=== PATIENT | female | born 1945 | race Caucasian/White ===

== ENCOUNTER → 2024-05-08 | Outpatient (CLI) | payer MEDICARE, SELFPAY ==
[2024-05-08 10:06] LABS: Collection Type, Urine Clean Catch
[2024-05-08 10:25] LABS: Basophils % (Auto) 1 % (0-2.5); Eosinophils # (Auto) 0.1 Thou/mm3 (0.0-0.5); Eosinophils % (Auto) 2 % (0-10); Hematocrit 41.5 % (36.0-46.0); Hemoglobin 14.6 g/dL (12.0-16.0); Immature Granulocytes % (Auto) 0 % (0-0); Lymphocytes # (Auto) 1.2 Thou/mm3 (1.0-4.8); Lymphocytes % (Auto) 32 % (10-50); Mean Corpuscular HGB Conc 35.2 g/dl (31.0-37.0); Mean Corpuscular Hemoglobin 30.4 pg (25.0-35.0); Mean Corpuscular Volume 86 fL (80-100); Monocytes # (Auto) 0.4 Thou/mm3 (0.0-0.8); Monocytes % (Auto) 10 % (0-12); Neutrophils # (Auto) 2.2 Thou/mm3 (1.8-7.7); Neutrophils % (Auto) 56 % (37-80); Nucleated Red Blood Cell % 0 /100 WBC (0); Platelet Count 209 Thou/mm3 (140-440); RDW Standard Deviation 42.1 fL (36.4-46.3); Red Blood Count 4.81 Miln/mm3 (4.00-5.20); White Blood Count 3.9 Thou/mm3 (3.6-11.0)
[2024-05-08 10:40] LABS: Bacteria,Urine Rare; Bilirubin,Urine Negative (Negative); Blood,Urine Trace (Negative); Clarity,Urine Clear (Clear/Hazy); Color,Urine Yellow (Lt Yel-Yel); Culture Indicated,Urine Not Indicated; Glucose, Urine Negative (Negative); Granular Casts,Urine < 1 /hpf (0-1); Hyaline Casts,Urine 1 /hpf (0-1); Ketones,Urine Negative (Negative); Leukocyte Esterase,Urine Negative (Negative); Nitrite,Urine Negative (Negative); PH,Urine 6.5 (5.0-7.0); Protein,Urine Trace (Neg - Trace); RBC,Urine 9 /hpf (0-3); Specific Gravity,Urine 1.019 (1.001-1.035); Squamous Epithelial Cell,Urine 2 /hpf (0-5); WBC,Urine 1 /hpf (0-5)
[2024-05-08 11:02] LABS: Alanine Aminotransferase 18 U/L (10-49); Albumin, Serum 4.6 gm/dL (3.4-4.8); Albumin/Globulin Ratio 2.3 (1.2-2.2); Alkaline Phosphatase 73 U/L (46-116); Anion Gap 9 (7-16); Aspartate Amino Transferase 20 U/L (0-34); BUN/Creatinine Ratio 11 Ratio (12-20); Blood Urea Nitrogen 11 mg/dL (9-23); Calcium 9.7 mg/dL (8.3-10.6); Calcium (Corrected) 9.7 mg/dL (8.5-10.1); Carbon Dioxide 26.4 mMol/L (20.0-31.0); Chloride 101 mMol/L (98-107); Cholesterol 191 mg/dL (132-200); Glucose 92 mg/dL (74-106); HDL Cholesterol 64 mg/dL (40-60); LDL Cholesterol,Calculated 107 mg/dL (0-130); Osmolality,Calculated 271 (275-295); Potassium 4.4 mMol/L (3.4-5.1); Sodium 136 mMol/L (136-145); Thyroid Stimulating Hormone 0.87 uIU/mL (0.55-4.78); Total Protein 6.6 gm/dL (5.7-8.2); Triglycerides 101 mg/dL (30-150); eGFR 58 See Note
== END | disposition home or self-care (01) ==
LOC: COPL 09:25
PROVIDERS: PCP Nurse Practitioner Family; Referring Provider Nurse Practitioner Family; Visit Provider Nurse Practitioner Family
DX: Z00.00 Encounter for general adult medical examination without abnormal findings (principal); I12.9 Hypertensive chronic kidney disease with stage 1 through stage 4 chronic kidney disease, or unspecified chronic kidney disease; N18.30 Chronic kidney disease, stage 3 unspecified; E03.9 Hypothyroidism, unspecified
CPT/HCPCS: 36415; 80053; 80061; 81001; 84443; 85025

== ENCOUNTER → 2024-06-06 | Outpatient (CLI) | payer MEDICARE, SELFPAY ==
--- NOTE | 2024-06-06 13:00 | XR_ITS ---
Examination: Breast ultrasound, unilateral, left complete Date and time of exam: June 06, 2024 1352 hours INDICATIONS: Left breast sonogram June 25, 2023 10:00 nodule 7 x 5 mm Technique: Real-time blankenship scale ultrasonographic imaging performed left breast including all 4 quadrants as well as nipple retroareolar and axillary region. Findings: 2:00 oval mass circumscribed 6 x 2 x 6 mm 6:00 cyst 5 x 5 x 7 mm IMPRESSION: BI-RADS Category 2: Benign findings
--- NOTE | 2024-06-06 13:30 | XR_ITS ---
Examination: Screening digital mammography, bilateral Computer aided detection 3-D breast Tomosynthesis, bilateral Date and time of exam: June 06, 2024 1407 hrs. Compared to mammograms dating to April 29, 2016 Indication: Screening Technique: Nonmagnified MLO, CC views of the breasts to been obtained, reconstructed from 3-D Tomosynthesis images. R2 computer aided detection program utilized for evaluation of suspicious masses and/or abnormal calcifications. 3-D Tomosynthesis images obtained. Findings: The breasts are heterogeneously dense, which may obscure small masses Stable nodule nipple level left breast CC view 12 mm focal asymmetry upper outer left breast Impression: BI-RADS Category 0: Incomplete: Need additional imaging evaluation 12 mm focal asymmetry upper outer left breast, recommend follow-up spot tomographic views of this asymmetry as well as left breast sonography to complete the workup.
--- NOTE | 2024-06-06 13:45 | XR_ITS ---
Examination: Bone densitometry Date and time of exam:June 06, 2024 1430 hours INDICATIONS: Menopause age 57 vitamin D and calcium 2 years levothyroxine 10 years Technique: Lumbar spine and hip total bone mineralization values of an calculated. Peak reference and age match control results have been displayed. Findings: Lumbar spine total bone mineralization is0.817 gm/cm2. This is 2.1 standard deviations below peak reference. This is 0.4 standard deviations above age-matched controls. Hip total bone mineralization is 0.614 gm/cm2 This is 2.7 standard deviations below peak reference. This is point standard deviations below age-matched controls Impression: There is osteopenia based on lumbar spine measurements. There is osteoporosis based on hip measurements Lumbar mineralization is decreased 6.7% compared with April 29, 2016 Hip mineralization is decreased 15.4% compared with April 29, 2016
== END | disposition home or self-care (01) ==
PROVIDERS: PCP Family Medicine; Referring Provider Nurse Practitioner Family; Visit Provider Nurse Practitioner Family
DX: Z12.31 Encounter for screening mammogram for malignant neoplasm of breast (principal); R92.8 Other abnormal and inconclusive findings on diagnostic imaging of breast; N64.89 Other specified disorders of breast; M85.88 Other specified disorders of bone density and structure, other site; M81.0 Age-related osteoporosis without current pathological fracture
CPT/HCPCS: 76641; 77063; 77067; 77080

== ENCOUNTER → 2024-08-18 | Outpatient (CLI) | payer MEDICARE, SELFPAY ==
--- NOTE | 2024-08-18 | XR_ITS ---
Examination: Diagnostic digital mammography, unilateral, left Computer aided detection 3-D breast Tomosynthesis, unilateral Date and time of exam: August 10, 2024 1102 hours INDICATIONS: Mammogram June 06, 2024 12 mm focal asymmetry upper outer left breast Technique: Nonmagnified MLO, CC views of the left breast have been obtained, reconstructed from 3-D Tomosynthesis images. R2 computer aided detection program utilized for evaluation of suspicious masses and/or abnormal calcifications. 3-D Tomosynthesis images obtained. Findings: The breast is heterogeneously dense, which may obscure small masses Spot compression left MLO view demonstrates 7 mm circumscribed nodule upper left breast Impression: BI-RADS category 3: Probably benign findings One additional 6 month left mammogram follow-up is needed to document stability of 7 mm circumscribed nodule upper left breast
== END | disposition home or self-care (01) ==
LOC: CDIM 10:33
PROVIDERS: Referring Provider Nurse Practitioner Family; Visit Provider Nurse Practitioner Family
DX: R92.332 Mammographic heterogeneous density, left breast (principal); N63.20 Unspecified lump in the left breast, unspecified quadrant
CPT/HCPCS: 77061; 77065; G0279

== ENCOUNTER → 2024-09-21 | Outpatient (CLI) | payer MEDICARE, SELFPAY | END | disposition home or self-care (01) | LOC: SLDO 14:31 | PROVIDERS: PCP Nurse Practitioner Family; Referring Provider Nurse Practitioner Family; Visit Provider Nurse Practitioner Family | DX: N30.00 Acute cystitis without hematuria (principal) | CPT/HCPCS: 87086 ==

== ENCOUNTER → 2025-02-19 | Outpatient (CLI) | payer MEDICARE, SELFPAY ==
--- NOTE | 2025-02-19 10:30 | XR_ITS ---
Examination: Diagnostic digital mammography, unilateral, left Computer aided detection 3-D breast Tomosynthesis, unilateral Date and time of exam: February 19, 2025, 1032 hours INDICATIONS: Mammogram August 18, 2024 7 mm nodule upper left breast Technique: Nonmagnified MLO, CC views of the left breast have been obtained, reconstructed from 3-D Tomosynthesis images. R2 computer aided detection program utilized for evaluation of suspicious masses and/or abnormal calcifications. 3-D Tomosynthesis images obtained. Findings: The breast is heterogeneously dense, which may obscure small masses Stable 7 mm nodule left breast on the spot compression views Impression: BI-RADS category 2: Benign findings Return to yearly follow-up mammography
== END | disposition home or self-care (01) ==
LOC: CDIM 10:12
PROVIDERS: Referring Provider Nurse Practitioner Family; Visit Provider Nurse Practitioner Family
DX: R92.322 Mammographic fibroglandular density, left breast (principal)
CPT/HCPCS: 77061; 77065; G0279

== ENCOUNTER 2025-03-22 16:16 | Emergency (ER) | payer MEDICARE, SELFPAY ==
[2025-03-22] VITALS (7 sets, daily range): BP systolic 112–192; BP diastolic 78–109; PULSE 75–96; RESP 16–20; TEMP 36.3–37.2; O2SAT 95–100; BMI 18.3
--- NOTE | 2025-03-22 17:05 | XR_ITS ---
EXAMINATION: AP chest single view TECHNIQUE: Portable AP upright chest single view Date and time: March 22, 2025, 1713 hours, comparison March 11, 2018 INDICATIONS: Shortness of breath burning sensation of the chest and throat beginning 3 days ago. FINDINGS: Significant hyperexpansion Normal heart size No pneumonia or pulmonary edema Prominent osteopenia Ectatic thoracic aorta IMPRESSION: COPD with prominent hyperexpansion No pneumonia or pulmonary edema
--- NOTE | 2025-03-22 17:05 | EKG_ITS ---
[facility] Test Date: 2025-03-22 Pat Name: ANNA MIRANDA Department: Room: - Gender: Female [employer]: : [id number] Requested By: Gisele Brown Order Number: [id number] Reading MD: Gisele Brown Measurements Intervals [place] Rate: 88 P: [place]: QRS: 9 QRSD: 81 T: 80 QT: 407 QTc: 495 Interpretive Statements ATRIAL FIBRILLATION ABNORMAL RHYTHM ECG Compared to ECG 06/24/2022 10:44:18 Sinus tachycardia no longer present Atrial abnormality no longer present Left-axis deviation no longer present Myocardial infarct finding no longer present /store/S0/[id number]/[id number].pdf
--- NOTE | 2025-03-22 17:08 | PD.EDSOB ---
ED SOB =RME/HPI General Chief Complaint: Shortness of Breath/Dyspnea Stated Complaint: DIFFICULTY BREATHING Time Seen by Provider: 03/22/25 16:46 Arrival date/time: 79-year-old female patient with significant history of hypothyroidism, hypertension, was brought in by EMS for evaluation regarding shortness of breath. According to her they did a spray in her room to kill the bugs, for the last 3 days, and since then has been having worsening shortness of breath, with sore throat, severity moderate. Patient also complaining of nonproductive cough. Denies any chest pain. Denies any fever denies any other complaints. Currently patient was noted to be satting 98% on room air. Was given interpreting treatment on the way to the emergency room by EMS. Related Data Previous Rx's ?Medication ?Instructions ?Recorded amlodipine 2.5 mg tablet 2.5 mg PO QDAY #30 tabs 06/24/22 levothyroxine 75 mcg tablet 75 mcg PO QDAY #30 tabs 06/24/22 famotidine 40 mg tablet (Pepcid) 40 mg PO BID #14 tabs 03/22/25 prednisone 50 mg tablet 50 mg PO QDAY #5 tabs 03/22/25 Allergies Allergy/AdvReac Type Severity Reaction Status Date / Time No Known Allergies Allergy Verified 06/24/22 12:22 Review of Systems Review of Systems Narrative Review of Systems: Review of system reviewed and within normal limits except mentioned in HPI ED Exam Narrative Physical exam: VITAL SIGNS: Reviewed. GENERAL APPEARANCE: Alert and interactive, follows commands, no acute distress, HEAD AND FACE: Non-traumatic. ENT: PERRL, pink conjunctivitis, eyelid no trauma, Mucous membrane moist. NECK: Supple, nontender, no nuchal rigidity. CHEST: No tenderness, no crepitus, no paradoxical movement, no retractions. LUNGS: Clear, well ventilated, symmetric, no rales, no wheezing, no ronchi, no stridor, good breath sounds bilaterally. HEART: Regular rate, regular rhythm, no murmur, no gallops. ABDOMEN: Soft, positive bowel sounds, nondistended, no guarding, nontender, no rebound, no masses, RECTAL: Deferred. GENITAL: Deferred. NEUROLOGICAL: Gross motor function intact sensory function intact, Appropriate for age. MUSCULOSKELETAL: low back nontender, full range of motion. EXTREMITIES: Nontender, full range of motion. SKIN: Color pink, dry, no rash, no lacerations, no abrasions, no contusions. LYMPHATICS: Deferred. Course Quality Measures none Orders Category Date Time Status Bedside COVID-19 Antigen Test NOW Care 03/22/25 17:58 Completed EKG (ED ONLY) *Do not use* NOW Care 03/22/25 17:05 Completed EKG (ED Only) Stat Exams 03/22/25 17:05 Draft XR chest 1V Stat Exams 03/22/25 17:05 Completed C-Reactive Protein Stat Lab 03/22/25 17:08 Completed CBC Stat Lab 03/22/25 17:08 Completed COVID-19 Antigen (In-House) Stat Lab 03/22/25 15:05 Completed Comprehensive Metabolic Panel Stat Lab 03/22/25 17:08 Completed Lactate (Lactic Acid) Stat Lab 03/22/25 17:08 Completed Partial Thromboplastin Time Stat Lab 03/22/25 17:08 Completed Procalcitonin Stat Lab 03/22/25 17:08 Completed Strep A Rapid Stat Lab 03/22/25 17:55 Completed Troponin I Stat Lab 03/22/25 17:08 Completed Dexamethasone Inj [Decadron Inj] Med 03/22/25 17:15 Discontinued 10 mg IV X1 ONE Ringers Lactated 1000 ml [Lactated Ringers] 1,000 ml Med 03/22/25 17:07 Discontinued IV 999 mls/hr hydrALAZINE HCL [Apresoline] Med 03/22/25 18:00 Discontinued 50 mg PO X1 ONE Vital Signs Vital signs: Vital Signs Temperature 97.4 F 03/22/25 16:22 Respiratory Rate 18 03/22/25 16:22 Blood Pressure 168/87 H 03/22/25 16:22 Pulse Oximetry (%) 100 03/22/25 16:22 Oxygen Delivery Method Oxy Mask 03/22/25 16:22 Shortness of Breath / Dyspnea MDM Narrative MDM Narrative:: 79-year-old female patient with significant history of hypothyroidism, hypertension, was brought in by EMS for evaluation regarding shortness of breath. According to her they did a spray in her room to kill the bugs, for the last 3 days, and since then has been having worsening shortness of breath, with sore throat, severity moderate. Patient also complaining of nonproductive cough. Denies any chest pain. Denies any fever denies any other complaints. Currently patient was noted to be satting 98% on room air. Was given interpreting treatment on the way to the emergency room by EMS. Patient's workup is significant for lactic acid of 2.6, the rest of the labs unremarkable no leukocytosis. Troponin is normal negative for COVID and strep. I personally reviewed and interpreted the x-ray of this patient. There is no acute abnormalities found, no infiltrates no pneumothorax no hemothorax normal chest x-ray. Review of other structures was without significant abnormal findings also. I additionally reviewed the radiologist report and agree with the interpretation. EKG rhythm, ventricular rate of shows sinus rhythm, ventricular rate of 88 bpm, no ST segment elevation or depression noted. Patient received IV fluids, Decadron IV, hydralazine, for elevated blood pressure, and on reevaluation patient verbalized significant improvement of shortness of breath. Was noted to be satting 95% on room air. Heart rate was noted to be 86, blood pressure was noted to be 112/78 prior to discharge. Send patient home on prednisone and Pepcid. Patient data External records reviewed:: None Clinical information provided by:: patient Social determinants that could affect healthcare access:: none Patient has the following chronic illnesses:: Hypertension hypothyroidism COPD How is presenting disease/condition affected by chronic disease/condition?: exacerbated by Evaluation data The following diagnostics were reviewed and interpreted by me:: lab results, radiology exam(s) and EKG tracing(s) Lab and/or radiology exams considered but not ordered:: None Interpretation Summary: See results MDM Medications / Prescriptions Medications or Prescriptions considered but not ordered:: None Medication administrations:: Medication Administration History Discontinued Medications Dexamethasone Sodium Phosphate (Dexamethasone Sod Phos Inj 10 Mg/Ml Vial) 10 mg IV X1 ONE Stop: 03/22/25 17:16 Last Admin: 03/22/25 17:22 Dose: 10 mg Documented By: BY Hydralazine HCl (Hydralazine Hcl 25 Mg Tablet) 50 mg PO X1 ONE Stop: 03/22/25 18:01 Last Admin: 03/22/25 18:15 Dose: 50 mg Documented By: BY Lactated Ringer's (Lactated Ringers) 1,000 mls @ 999 mls/hr IV .Q1H1M ONE Stop: 03/22/25 18:07 Last Infusion: 03/22/25 19:13 Dose: Infused Documented By: Admin: 03/22/25 17:24 Dose: 999 mls/hr Documented By: BY IV fluids, hydralazine Decadron Consultations Consultation(s) initiated? (list below): No Diagnosis Shortness of Breath Differential Diagnosis: acute exacerbation of chronic obstructive airways disease and community acquired pneumonia Most likely diagnosis given after review of the tests above:: Shortness of breath Admission Indicated Admission indicated?: not indicated Admission Request Was there a request for admission?: No Disposition Plan Disposition Plan: Discharge Discharge Attestation Discharge Attestation: The patient was given an opportunity to ask questions and understood the discharge instructions. Discharge instructions specifically effects, indications for sooner follow up or return to the emergency department, and the expected course of current diagnosis. Patient condition: Stable Discharge Plan Plan Patient Disposition: HOME (Self Care) Discharge Disposition comment: Stable Prescriptions/Referrals Prescriptions/Med Rec: New famotidine [Pepcid] 40 mg tablet 40 mg PO BID Qty: 14 0RF prednisone 50 mg tablet 50 mg PO QDAY Qty: 5 0RF No Action levothyroxine 75 mcg tablet 75 mcg PO QDAY Qty: 30 0RF amlodipine 2.5 mg tablet 2.5 mg PO QDAY Qty: 30 0RF Referrals: No Primary/Family,Physician [Primary Care Provider] - In 1 week Problem List Clinical Impression: Shortness of breath Patient/Caregiver Discharge Instructions Discharge Activity: activity as tolerated Education Materials: ED Shortness of Breath (Dyspnea) Additional Instructions: Thank you for the opportunity for serving you today. You are stable for discharged . You are advised to: Follow-up with your PCP in 1 to 2 days Return to ED for worsening of symptoms Increase oral fluids Take medication as prescribed Print Language: Yi Stand Alone Forms: Verenice Award Info., Patient Portal Info Letter LUIS MANUEL/DILAN Supervising Physician LUIS MANUEL/DILAN Supervising Physician: MD Mo
[2025-03-22 17:13] LABS: Lactate (Lactic Acid) 2.6 mMol/L (0.4-2.0)
[2025-03-22 17:15] LABS: Basophils # (Auto) 0.0 Thou/mm3 (0.0-0.2); Basophils % (Auto) 0 % (0-2.5); Eosinophils # (Auto) 0.1 Thou/mm3 (0.0-0.5); Eosinophils % (Auto) 1 % (0-10); Hematocrit 38.0 % (36.0-46.0); Hemoglobin 13.5 g/dL (12.0-16.0); Immature Granulocytes Auto 0.01 Thou/mm3 (0.00-0.00); Lymphocytes # (Auto) 1.4 Thou/mm3 (1.0-4.8); Lymphocytes % (Auto) 34 % (10-50); Mean Corpuscular HGB Conc 35.5 g/dl (31.0-37.0); Mean Corpuscular Hemoglobin 30.3 pg (25.0-35.0); Mean Corpuscular Volume 85 fL (80-100); Monocytes # (Auto) 0.6 Thou/mm3 (0.0-0.8); Monocytes % (Auto) 13 % (0-12); Neutrophils # (Auto) 2.2 Thou/mm3 (1.8-7.7); Neutrophils % (Auto) 51 % (37-80); Nucleated Red Blood Cell # 0.00 Thou/mm3 (0.00-0.00); Nucleated Red Blood Cell % 0 /100 WBC (0); Platelet Count 194 Thou/mm3 (140-440); RDW Standard Deviation 39.5 fL (36.4-46.3); Red Blood Count 4.45 Miln/mm3 (4.00-5.20); White Blood Count 4.2 Thou/mm3 (3.6-11.0)
[2025-03-22] MEDS: DEXAMETHASONE SOD PHOS INJ 10 MG/ML VIAL IV (17:22)
[2025-03-22] MEDS: RINGERS LACTATED 1000 ML 1,000 ML 999 ML IV (17:24)
[2025-03-22 17:31] LABS: Partial Thromboplastin Time 29.0 Seconds (22.0-36.0)
[2025-03-22 17:50] LABS: Alanine Aminotransferase 12 U/L (10-49); Albumin, Serum 4.3 gm/dL (3.4-4.8); Albumin/Globulin Ratio 2.3 (1.2-2.2); Alkaline Phosphatase 57 U/L (46-116); Anion Gap 13 (7-16); Aspartate Amino Transferase 23 U/L (0-34); BUN/Creatinine Ratio 12 Ratio (12-20); Bilirubin,Total 0.5 mg/dL (0.3-1.2); Blood Urea Nitrogen 11 mg/dL (9-23); C-Reactive Protein < 0.5 mg/dL (0.0-0.9); Calcium 9.0 mg/dL (8.3-10.6); Calcium (Corrected) 9.0 mg/dL (8.5-10.1); Carbon Dioxide 22.9 mMol/L (20.0-31.0); Chloride 96 mMol/L (98-107); Creatinine (Component) 0.9 mg/dL (0.6-1.3); Estimated Creatinine Clearance 37.5 mL/min (>60); Globulin 1.9 gm/dL (2.3-3.5); Glucose 109 mg/dL (74-106); Osmolality,Calculated 264 (275-295); Potassium 3.7 mMol/L (3.4-5.1); Procalcitonin 0.08 ng/ml (0.0-0.49); Sodium 132 mMol/L (136-145); Total Protein 6.2 gm/dL (5.7-8.2); Troponin I < 0.020 ng/mL (0.0-0.045); eGFR > 60 See Note
[2025-03-22 18:28] LABS: COVID-19 Antigen (In-House) Negative (Negative)
[2025-03-22 18:29] LABS: Strep A Rapid Negative (Negative)
[2025-03-22 20:11] LABS: Reflex Lactate? Y
== END 2025-03-22 20:14 | disposition home or self-care (01) ==
PROVIDERS: Nurse Practitioner Family; Emergency Provider Emergency Medicine
DX: R06.02 Shortness of breath (principal); E03.9 Hypothyroidism, unspecified; I10 Essential (primary) hypertension
CPT/HCPCS: 36415; 71045; 80053; 83605; 84145; 84484; 85025; 85730; 86140; 87651; 87811; 93005; 96361; 96374; 99284; J1100; J7120; A9270

== ENCOUNTER → 2025-04-05 | Outpatient (CLI) | payer MEDICARE, SELFPAY ==
[2025-04-05 09:57] LABS: Alanine Aminotransferase 17 U/L (10-49); Albumin, Serum 4.7 gm/dL (3.4-4.8); Albumin/Globulin Ratio 2.8 (1.2-2.2); Alkaline Phosphatase 56 U/L (46-116); Anion Gap 8 (7-16); Aspartate Amino Transferase 16 U/L (0-34); BUN/Creatinine Ratio 10 Ratio (12-20); Bilirubin,Total 1.2 mg/dL (0.3-1.2); Blood Urea Nitrogen 8 mg/dL (9-23); C-Reactive Protein < 0.5 mg/dL (0.0-0.9); Calcium 9.1 mg/dL (8.3-10.6); Calcium (Corrected) 9.1 mg/dL (8.5-10.1); Carbon Dioxide 30.1 mMol/L (20.0-31.0); Chloride 101 mMol/L (98-107); Creatinine (Component) 0.8 mg/dL (0.6-1.3); Free T4 (Free Thyroxine) 1.67 ng/dL (0.89-1.76); Globulin 1.7 gm/dL (2.3-3.5); Glucose 102 mg/dL (74-106); Osmolality,Calculated 275 (275-295); Potassium 4.2 mMol/L (3.4-5.1); Sodium 139 mMol/L (136-145); Thyroid Stimulating Hormone 3.41 uIU/mL (0.55-4.78); Total Protein 6.4 gm/dL (5.7-8.2); eGFR > 60 See Note
[2025-04-05 10:52] LABS: Basophils # (Auto) 0.0 Thou/mm3 (0.0-0.2); Basophils % (Auto) 1 % (0-2.5); Eosinophils # (Auto) 0.1 Thou/mm3 (0.0-0.5); Eosinophils % (Auto) 1 % (0-10); Hematocrit 44.0 % (36.0-46.0); Hemoglobin 15.6 g/dL (12.0-16.0); Immature Granulocytes Auto 0.04 Thou/mm3 (0.00-0.00); Lymphocytes # (Auto) 0.9 Thou/mm3 (1.0-4.8); Lymphocytes % (Auto) 12 % (10-50); Mean Corpuscular HGB Conc 35.5 g/dl (31.0-37.0); Mean Corpuscular Hemoglobin 30.8 pg (25.0-35.0); Mean Corpuscular Volume 87 fL (80-100); Monocytes # (Auto) 0.6 Thou/mm3 (0.0-0.8); Monocytes % (Auto) 8 % (0-12); Neutrophils # (Auto) 6.0 Thou/mm3 (1.8-7.7); Neutrophils % (Auto) 79 % (37-80); Nucleated Red Blood Cell # 0.00 Thou/mm3 (0.00-0.00); Nucleated Red Blood Cell % 0 /100 WBC (0); Platelet Count 317 Thou/mm3 (140-440); RDW Standard Deviation 41.5 fL (36.4-46.3); Red Blood Count 5.06 Miln/mm3 (4.00-5.20); White Blood Count 7.6 Thou/mm3 (3.6-11.0)
== END | disposition home or self-care (01) ==
PROVIDERS: PCP Family Medicine
DX: J02.9 Acute pharyngitis, unspecified (principal)
CPT/HCPCS: 36415; 80053; 84439; 84443; 85025; 86140

== ENCOUNTER → 2025-04-10 | Outpatient (CLI) | payer MEDICARE, SELFPAY ==
--- NOTE | 2025-04-10 09:45 | XR_ITS ---
Examination thyroid sonography complete TECHNIQUE: Grayscale sonographic images thyroid lobes Date and time: April 10, 2025, 0955 hours INDICATIONS: Mild throat and tongue pain noticed beginning 2 months ago. FINDINGS: Right thyroid 2.7 cm Left thyroid 2.3 cm No solid nodules IMPRESSION: Negative study
== END | disposition home or self-care (01) ==
PROVIDERS: PCP Nurse Practitioner Family
DX: J02.9 Acute pharyngitis, unspecified (principal)
CPT/HCPCS: 76536